=== PATIENT | male | born 1990 | race Caucasian/White ===

== ENCOUNTER 2023-09-02 11:37 | Emergency (ER) | payer OTHER ==
[~2023-09-02] VITALS: Ht 185.4 cm; Wt 84.5 kg
[2023-09-02] MEDS ORDERED: SEROQUEL300 MG PO (12:39)
[2023-09-02] MEDS ORDERED: LAMICTAL100 MG PO (12:41)
[2023-09-02] MEDS ORDERED: QUETIAPINE FUMARATE 100 MG TAB PO ONE (12:45)
[2023-09-02 12:50] VITALS: BP 119/78
== END 2023-09-02 12:51 | disposition home or self-care (01) ==
LOC: ED 11:37
DX: Z76.0 Encounter for issue of repeat prescription (principal)
CPT/HCPCS: 99281